=== PATIENT | female | born 1945 | race Caucasian/White ===

== ENCOUNTER 2022-12-22 08:59 | Inpatient (IN) | payer OTHER ==
[~2022-12-22] VITALS: Ht 152.4 cm; Wt 63.5 kg
[2022-12-22] MEDS ORDERED: COZAAR25 MG PO (09:04)
[2022-12-22] MEDS ORDERED: LEVOTHYROXINE13 MCG PO (09:04)
[2022-12-22] MEDS ORDERED: KATERZIA1 MG/1 ML PO (09:04)
[2022-12-22] MEDS ORDERED: GLUMETZA500 MG (09:04)
[2022-12-22] MEDS ORDERED: NEURAPTINE1 GM TP (09:04)
[2022-12-22] MEDS ORDERED: VITAMIN D310 MCG/1 M (09:04)
[2022-12-22] MEDS ORDERED: MIRTAZAPINE7.5 MG (09:04)
[2022-12-22] MEDS ORDERED: ATORVASTATIN CA10 MG PO (09:05)
[2022-12-22] MEDS ORDERED: RESTORIL7.5 MG PO (09:05)
[2022-12-22] MEDS ORDERED: CAROSPIR25 MG/5 ML PO (09:05)
[2022-12-22 10:18] LABS: HEMATOCRIT 38.7 % (36.0-45.00); HEMOGLOBIN 12.8 g/dL (12.0-15.00); MEAN CELL VOLUME 76.2 fL (80.00-100.00); MEAN CORPUSCULAR HEMOGLOBIN 25.1 pg (27.00-32.0); PLATELET COUNT 341 K/uL (150-450); RED BLOOD COUNT 5.08 M/uL (4.00-6.00); RED CELL DISTRIBUTION WIDTH 15.8 % (11.5-14.5)
[2022-12-22 10:44] LABS: URINE APPEARANCE Clear; URINE BILIRRUBIN Negative (NEGATIVE); URINE BLOOD Negative; URINE COLOR Yellow; URINE GLUCOSE Negative (NEGATIVE); URINE LEUKOCYTE Trace; URINE NITRATE Positive; URINE PROTEIN Negative (NEGATIVE)
[2022-12-22 10:45] LABS: URINE EPITHELIAL CELLS 8.3 uL (0.0-38.8); URINE RBC 4.1 uL (0.0-20.8)
[2022-12-22 11:22] LABS: URINE BACTERIA > 9821.5 uL (0.0-1933)
[2022-12-22 11:31] LABS: INR 1.07; PARTIAL THROMBOPLASTIN TIME 26.1 SECONDS (22.0-34.0); PROTHROMBIN TIME 11.2 SECONDS (9.0-11.5)
[2022-12-22 11:53] LABS: CALCIUM 9.3 mg/dL (8.5-10.1); CREATININE SERUM 0.81 mg/dL (0.55-1.02); GFR 68.75; POTASSIUM 4.44 mEq/L (3.5-5.1)
[2022-12-25] MEDS ORDERED: CIPRO500 MG PO (16:09)
[2022-12-25] MEDS ORDERED: METRONIDAZOLE500 MG PO (16:10)
[2022-12-25] MEDS ORDERED: PEPCID AC20 MG PO (16:13)
== END 2022-12-25 17:31 | disposition home or self-care (01) | DRG 394 ==
LOC: ER 08:59 → SEC-K 13:01 → MEDJ 13:01
PROVIDERS: General Practice; ADMIT Internal Medicine; ATTEND Internal Medicine
PROC: BW21YZZ Computerized Tomography (CT Scan) of Abdomen and Pelvis using Other Contrast (ICD-10-PCS; principal; 2022-12-22)
DX: K63.1 Perforation of intestine (nontraumatic) (principal); S36.503A Unspecified injury of sigmoid colon, initial encounter; E03.9 Hypothyroidism, unspecified; E78.5 Hyperlipidemia, unspecified; I10 Essential (primary) hypertension; E11.9 Type 2 diabetes mellitus without complications; Z79.4 Long term (current) use of insulin